=== PATIENT | female | born 1975 | race Hispanic/Latino ===

== ENCOUNTER 2018-02-06 03:41 | Emergency (ER) | payer OTHER ==
[2018-02-06] MEDS ORDERED: ONDANSETRON 4 MG/2 ML VIAL ONE (04:33)
[2018-02-06] MEDS ORDERED: NA CHLORIDE 0.9% 1,000 ML ONE (04:33)
[2018-02-06] MEDS ORDERED: MORPHINE 4 MG/ML SYR ONE (04:33)
[2018-02-06 04:55] LABS: Absolute Lymphocytes (CBC) 1.3 K/uL (0.7-4.9); Absolute Monocytes 0.9 K/uL (0.1-1.3); Absolute Neutrophil 9.4 K/uL (1.8-8.0); Hematocrit 43.6 % (36.0-45.0); Lymphocytes % 10.8 % (15.3-44.8); MCH 29.2 pg (27.0-35.0); MPV 8.1 fL (7.6-11.3); Monocytes % 7.7 % (3.3-12.3); RBC Red Blood Cell Count 5.01 M/uL (3.86-4.86)
[2018-02-06 05:02] LABS: Potassium 3.3 mEq/L (3.6-5.0)
[2018-02-06 05:03] LABS: Glomerular Filtration Rate > 60 mL/min (>60)
[2018-02-06 05:07] LABS: Urine Blood TRACE (NEG); Urine Glucose NEGATIVE (NEG); Urine Protein NEGATIVE (NEG)
[2018-02-06 05:08] LABS: Albumin 4.3 g/dL (3.2-5.5); Bilirubin Direct 0.1 mg/dL (0-0.2); Bilirubin Total 0.9 mg/dL (0.3-1.2); Protein, Total 7.6 g/dL (6.0-8.3); Urine Bacteria >50 /HPF (<20); Urine Culture Reflex Order NOT NEEDED; Urine RBC <5 /HPF (NONE SEEN)
[2018-02-06] MEDS ORDERED: POTASSIUM CL SA 10 MEQ TAB PO ONE (06:09)
--- NOTE | 2018-02-06 09:30 | RAD REPORT ---
EXAM DESCRIPTION: CT - Abdomen Pelvis W Contrast - 02/06/2018 8:56 am CLINICAL HISTORY: Abdominal pain. Epigastric pain since yesterday COMPARISON: None. TECHNIQUE: Computed axial tomography of the abdomen and pelvis was obtained. 100 cc Isovue-300 is ad ministered intravenously. Oral contrast was given.A preliminary report was generated by [employer] and reviewed prior to this dictation All CT scans are performed using dose optimization technique as appropriate and may include automated exposure control or mA/KV adjustment according to patient size. FINDINGS: The liver, spleen, pancreas, adrenals and kidneys appear unremarkable. The appendix is normal caliber. There is no evidence of diverticulitis The wall of several loops of distal ileum is thickened with small amount of fluid within the mesenter ic leaves. An IUD is in good position. Small uterine fibroids are present. A small amount of free fluid is prese nt within the pelvis IMPRESSION: The wall of several loops of distal ileum is thickened with small amount of fluid within the mesenteric leaves which may be the result of inflammation or infection.
--- NOTE | 2018-02-06 09:34 | EDPHYS ---
Physician Documentation [facility] Name: Martha Hardy Age: 42 yrs Sex: Female : 1975 Arrival Date: 02/06/2018 Time: 03:47 Bed 17 Private MD: ED Physician Justus Bernardo HPI: 02/06 04:09 This 42 yrs old Female presents to ER via Ambulatory with complaints of pkl Abdominal Pain. 04:09 The patient presents with abdominal pain in the upper abdomen. Onset: The pkl symptoms/episode began/occurred 3 day(s) ago. The symptoms do not radiate. Associated signs and symptoms: Pertinent positives: nausea and vomiting. Historical: - Allergies: 03:55 No Known Allergies; ao - PMHx: 03:55 None; ao - PSHx: 03:55 None; ao - Immunization history:: Adult Immunizations up to date. - Social history:: Smoking status: Patient uses tobacco products, denies chronic smoking, but will smoke occasionally, Patient uses alcohol, occasionally. Patient/guardian denies using street drugs. ROS: 04:09 Eyes: Negative for injury, pain, redness, and discharge, ENT: Negative for injury, pkl pain, and discharge, Neck: Negative for injury, pain, and swelling, Cardiovascular: Negative for chest pain, palpitations, and edema, Respiratory: Negative for shortness of breath, cough, wheezing, and pleuritic chest pain. 04:09 Abdomen/GI: Positive for abdominal pain, nausea and vomiting, of the right upper quadrant and left upper quadrant. 04:09 Back: Negative for acute changes. 04:09 : Negative for urinary symptoms. 04:09 MS/extremity: Negative for acute changes. 04:09 Skin: Negative for rash. 04:09 Neuro: Negative for altered mental status. Exam: 04:09 Head/Face: Normocephalic, atraumatic. Eyes: Pupils equal round and reactive to light, pkl extra-ocular motions intact. Lids and lashes normal. Conjunctiva and sclera are non-icteric and not injected. Cornea within normal limits. Periorbital areas with no swelling, redness, or edema. ENT: Nares patent. No nasal discharge, no septal abnormalities noted. Tympanic membranes are normal and external auditory canals are clear. Oropharynx with no redness, swelling, or masses, exudates, or evidence of obstruction, uvula midline. Mucous membranes moist. Neck: Trachea midline, no thyromegaly or masses palpated, and no cervical lymphadenopathy. Supple, full range of motion without nuchal rigidity, or vertebral point tenderness. No Meningismus. Chest/axilla: Normal chest wall appearance and motion. Nontender with no deformity. No lesions are appreciated. Cardiovascular: Regular rate and rhythm with a normal S1 and S2. No gallops, murmurs, or rubs. Normal PMI, no JVD. No pulse deficits. Respiratory: Lungs have equal breath sounds bilaterally, clear to auscultation and percussion. No rales, rhonchi or wheezes noted. No increased work of breathing, no retractions or nasal flaring. 04:09 Abdomen/GI: Bowel sounds: normal, Palpation: soft, mild abdominal tenderness, in the right upper quadrant and left upper quadrant. 04:09 Back: Exam negative for acute changes. 04:09 : Exam negative for acute changes. 04:09 Musculoskeletal/extremity: Exam is negative for acute changes. 04:09 Skin: Exam negative for rash. 04:09 Neuro: Orientation: is normal, Mentation: is normal, Cranial nerves: grossly normal, Motor: is normal, Gait: is steady. Vital Signs: 03:54 BP 146 / 93; Pulse 103; Resp 20; Temp 98.4(TE); Pulse Ox 98% on R/A; Weight 77.11 kg; ao Height 5 ft. 3 in. (160.02 cm) (R); Pain 8/10; 04:37 BP 123 / 75; Pulse 94; Resp 18; Pulse Ox 97% on R/A; mt 05:08 BP 129 / 86; Pulse 93; Resp 18; Pulse Ox 99% on R/A; mt 06:26 BP 133 / 87; Pulse 86; Resp 18; Pulse Ox 100% on R/A; mt 07:23 BP 118 / 77; Pulse 81; Resp 16; Pulse Ox 98% on R/A; ph 03:54 Body Mass Index 30.11 (77.11 kg, 160.02 cm) ao MDM: 03:55 Patient medically screened. pkl 09:32 ED course: pt seen and axamines denies pain, exam non surgical, ct = enteritis. 02/06 04:08 Order name: Amylase, Serum; Complete Time: 05:40 pkl 02/06 04:08 Order name: Basic Metabolic Panel; Complete Time: 05:40 pkl 02/06 04:08 Order name: CBC with Diff; Complete Time: 05:40 pkl 02/06 04:08 Order name: Creatinine for Radiology; Complete Time: 05:40 pkl 02/06 04:08 Order name: Hepatic Function; Complete Time: 05:40 pkl 02/06 04:08 Order name: Lipase; Complete Time: 05:40 pkl 02/06 04:08 Order name: Urine Microscopic Only; Complete Time: 05:40 pkl 02/06 04:08 Order name: CT Abd/Pelvis - W/Contrast; Complete Time: 09:31 pkl 02/06 04:28 Order name: Urine Dipstick--Ancillary (enter results); Complete Time: 05:40 em1 02/06 05:11 Order name: Urine --Ancillary (enter results); Complete Time: 06:05 bp 02/06 04:08 Order name: IV Saline Lock; Complete Time: 04:13 pkl 02/06 04:08 Order name: Labs collected and sent; Complete Time: 04:13 pkl 02/06 04:08 Order name: Urine Dipstick-Ancillary (obtain specimen); Complete Time: 04:13 pkl Administered Medications: 04:18 Drug: morphine 4 mg Route: IVP; Site: right antecubital; ao 04:56 Follow up: Response: Pain is decreased bp 04:18 Drug: Zofran 4 mg Route: IVP; Site: right antecubital; ao 04:56 Follow up: Response: Pain is decreased bp 04:19 Drug: NS 0.9% 1000 ml Route: IV; Rate: 1000 ml; Site: right antecubital; ao 06:25 Drug: K-Dur 20 mEq Route: PO; ao 10:08 Follow up: Response: No adverse reaction ph Disposition: 02/06/18 09:33 Discharged to Home. Impression: Noninfective gastroenteritis and colitis, unspecified. - Condition is Stable. - Discharge Instructions: Viral Gastroenteritis. - Prescriptions for Zofran 4 mg Oral Tablet - take 1 tablet by ORAL route every 12 hours As needed; 6 tablet. - Family Work Release, Medication Reconciliation Form, Thank You Letter, Antibiotic Education, Prescription Opioid Use form. - Follow up: Private Physician; When: 2 - 3 days; Reason: Re-evaluation by your physician. Signatures: Dispatcher [employer] Justus Henriquez MD MD pkl Hall, Patricia, RN RN David Franco RN RN ao Starr, Gregory, MD MD gs Peltier, Brian RN bp
--- NOTE | 2018-02-06 09:34 | ER ---
Nurse's Notes [facility] Name: Martha Hardy Age: 42 yrs Sex: Female : 1975 Arrival Date: 02/06/2018 Time: 03:47 Bed 17 Private MD: Diagnosis: Noninfective gastroenteritis and colitis, unspecified Presentation: 02/06 03:51 Presenting complaint: Patient states: "Starting on Monday I had this abdominal that ao got worst yesterday." Patient pointing at the epigastric area. Patient C/O vomiting and nausea also. Transition of care: patient was not received from another setting of care. Onset of symptoms was February 05, 2018 at 19:00. Care prior to arrival: None. 03:51 Method Of Arrival: Ambulatory ao 03:51 Acuity: ARELI 3 ao Historical: - Allergies: 03:55 No Known Allergies; ao - PMHx: 03:55 None; ao - PSHx: 03:55 None; ao - Immunization history:: Adult Immunizations up to date. - Social history:: Smoking status: Patient uses tobacco products, denies chronic smoking, but will smoke occasionally, Patient uses alcohol, occasionally. Patient/guardian denies using street drugs. Screenin:18 Abuse screen: Denies threats or abuse. Denies injuries from another. Nutritional bp screening: No deficits noted. Tuberculosis screening: No symptoms or risk factors identified. Fall Risk None identified. Assessment: 04:10 General: Appears in no apparent distress. comfortable, Behavior is calm, cooperative, bp appropriate for age. Pain: Complains of pain in umbilical area, right upper quadrant and left upper quadrant. Pain: Pain currently is 8 out of 10 on a pain scale. Neuro: Level of Consciousness is awake, alert, obeys commands, Oriented to person, place, time, situation, Appropriate for age. Cardiovascular: No deficits noted. Respiratory: Airway is patent Respiratory effort is even, unlabored, Respiratory pattern is regular, symmetrical. GI: Abdomen is non-distended, Bowel sounds present X 4 quads. Abd is soft X 4 quads. : No signs and/or symptoms were reported regarding the genitourinary system. EENT: No deficits noted. Derm: No deficits noted. Musculoskeletal: Circulation, motion, and sensation intact. Range of motion: intact in all extremities. 05:00 Reassessment: PT COMPLETED PO CONTRAST, CT NOTIFIED. bp 05:45 Reassessment: PT TO CT WITH RISK ANALYST. bp 07:22 Reassessment: Patient appears in no apparent distress at this time. Patient and/or ph family updated on plan of care and expected duration. Pain level reassessed. Patient is alert, oriented x 3, equal unlabored respirations, skin warm/dry/pink. Pt ambulated to restroom, gait steady, now in bed resting quietly, awaiting CT results, daughter at bedside. 08:30 Reassessment: Patient appears in no apparent distress at this time. Patient and/or ph family updated on plan of care and expected duration. Pain level reassessed. Patient is alert, oriented x 3, equal unlabored respirations, skin warm/dry/pink. Pt resting quietly, family at bedside, VSS Patient denies pain at this time. Patient states symptoms have improved. 10:00 Reassessment: Patient appears in no apparent distress at this time. Patient and/or ph family updated on plan of care and expected duration. Pain level reassessed. Patient is alert, oriented x 3, equal unlabored respirations, skin warm/dry/pink. Discharged home with family Patient denies pain at this time. Patient states symptoms have improved. Vital Signs: 03:54 BP 146 / 93; Pulse 103; Resp 20; Temp 98.4(TE); Pulse Ox 98% on R/A; Weight 77.11 kg; ao Height 5 ft. 3 in. (160.02 cm) (R); Pain 8/10; 04:37 BP 123 / 75; Pulse 94; Resp 18; Pulse Ox 97% on R/A; mt 05:08 BP 129 / 86; Pulse 93; Resp 18; Pulse Ox 99% on R/A; mt 06:26 BP 133 / 87; Pulse 86; Resp 18; Pulse Ox 100% on R/A; mt 07:23 BP 118 / 77; Pulse 81; Resp 16; Pulse Ox 98% on R/A; ph 03:54 Body Mass Index 30.11 (77.11 kg, 160.02 cm) ao ED Course: 03:47 Patient arrived in ED. al2 03:54 Triage completed. ao 03:54 Layo Fox, RN is Primary Nurse. bp 03:54 Arm band placed on right wrist. Patient placed in an exam room, on a stretcher, on ao pulse oximetry, Patient notified of wait time. 03:55 Justus Bernardo MD is Attending Physician. pkl 04:10 Inserted saline lock: 20 gauge in right antecubital area, using aseptic technique. bp Blood collected. 05:12 Urine --Ancillary (enter results) Sent. bp 06:16 CT Abd/Pelvis - W/Contrast In Process Unspecified. EDMS 07:30 Patient has correct armband on for positive identification. Placed in gown. Bed in low ph position. Call light in reach. Side rails up X 1. Pulse ox on. NIBP on. Warm blanket given. 10:06 No provider procedures requiring assistance completed. IV discontinued, intact, ph bleeding controlled, No redness/swelling at site. Pressure dressing applied. Administered Medications: 04:18 Drug: morphine 4 mg Route: IVP; Site: right antecubital; ao 04:56 Follow up: Response: Pain is decreased bp 04:18 Drug: Zofran 4 mg Route: IVP; Site: right antecubital; ao 04:56 Follow up: Response: Pain is decreased bp 04:19 Drug: NS 0.9% 1000 ml Route: IV; Rate: 1000 ml; Site: right antecubital; ao 06:25 Drug: K-Dur 20 mEq Route: PO; ao 10:08 Follow up: Response: No adverse reaction ph Outcome: 09:33 Discharge ordered by . 10:00 Patient left the ED. ph 10:07 Discharged to home ambulatory, with family. ph 10:07 Condition: good 10:07 Discharge instructions given to patient, family, Instructed on discharge instructions, follow up and referral plans. medication usage, Demonstrated understanding of instructions, follow-up care, medications, Prescriptions given X 1. Signatures: Dispatcher [employer] EDMT Justus Bernardo MD MD pkl Hall, Patricia, RN RN ph Ortiz, Alex, RN RN ao Thompson, Moriah mt Starr, Gregory, MD MD gs Peltier, Brian, RN RN bp Love, Ruth aponte
== END 2018-02-06 10:00 | disposition home or self-care (01) ==
LOC: ER 03:41
DX: R10.10 Upper abdominal pain, unspecified (principal); Z72.0 Tobacco use
CPT/HCPCS: 36415; 74177; 80048; 80076; 81003; 81015; 81025; 82150; 83690; 85025; 96374; 96375; 99284; J2405; J7030; Q9967